=== PATIENT | female | born 1965 | race Caucasian/White ===

== ENCOUNTER 2023-01-15 13:01 | Outpatient (RCR) | payer OTHER, SELFPAY ==
--- NOTE | 2023-01-15 15:47 | PT.OPE ---
[facility] PT [facility] Start: 01/15/23 13:04 Freq: Status: Active Protocol: Document 01/15/23 15:46 CJT (Rec: 01/15/23 15:47 CJT [id number]) E-signed By Rogerio Carney PT Physical Therapy Outpatient Evaluation Insurance Information Recert Due Date 04/15/23 Insurance Name [employer] R42 - Vertigo Treating Diagnosis H81.12 - L ear BPPV Referring Lianet Roche MD Subjective Subjective Pt attended about 6 weeks ago with complaints of sinus infection, headaches, etc. Pt is having periodic bouts of dizziness when she tips her head back while showering, using eye drops. Bending over to pick weeds, tie her shoes causes her dizziness to increase. Pt rolls out of her bed to her left. Pt also has 20+ year history of headaches. She has had imaging in the past that has returned negative for abnormalities or other concerns. Pt does note that she has very tight scalenes as well as upper traps. Current Work Status Retired Precautions Therapy Limitations/Systems Review Not Limited Objective Other/Pertinent Objective Oculomotor Testing Gaze Stabilization: negative Smooth Pursuits: negative Saccades: negative Convergence: negative Head Shake: negative Head Thrust: negative Positional Testing -R Terri-Hallpike: negative -L Terri-Hallpike: postiive for dizziness and torsional nystagmus lasting approx 10 seconds -R Roll: DNT -L Roll: DNT Assessment Assessment/Impression Soco is a very pleasant 57 year old female who presents to our clinic for evaluation of dizziness. Differential diagnosis is broad, including though was not limited to: peripheral processes (BPPV, vestibular neuritis, labyrinthitis, Meniere?s disease), NUTRITIONAL CHEMIST process (CVA, TIA, vascular dissection), cardiac arrhythmia, ACS, hypertensive urgency, among others. Based on the above history and exam, her symptoms are most suspicious and consistent with a peripheral process, with highest suspicion for BPPV. Each of her episodes of dizziness are distinctly triggered by changes in body position/head movement, and dizziness fatigues/resolves after a few seconds. She does have a positive Terri-Hallpike maneuver towards the Left side . Upon viewing this, an Clarisse maneuver was appropriately performed and pt noted complete resolution in her symptoms following. Other etiologies for dizziness were considered, but felt to be less likely at this time. Soco may have a component of cerivcogenic dizziness that we will further evaluate when she returns to our clinic. The nature of the pts condition was explained and all questions were answered to the pts satisfaction. Skilled PT services are medically necessary to address deficits and return patient to highest level of function. Recommend physical therapy sessions 1/ week for 4 weeks. Pt agrees with this plan. Printout of HEP was given for I completion and pt gives verbal understanding of each exercise . Plan of Care Rehabilitation Potential Good Physical Therapy Goals STG - To be completed in 2-3 weeks: 1. Pt will report reduction in dizziness frequency and intensity so that they may return to normal bed mobility with minimal bouts of dizziness. LTG - To be completed in 4 weeks: 1. Pt will report ability to roll over in bed to either side without onset of dizziness so that they may roll over in bed without waking. 2. Pt will score 120/120 on mCTSIB as indication of improved vestibular component of balance to reduce risk of falls. 3. Pt will report absence of dizziness with all positional testing so that they may perform all activities with similar head/neck positions including rolling over in bed, washing hair in shower without onset of dizziness. Treatment Plan/Direct Interventions Canalith Repositioning,Heat, Joint Mobilization,Manual Therapy,Neuromuscular Re-ed, Therapeutic Exercises Frequency/Duration 1/week for 4 weeks Patient Will Be Discharged From Therapy Completion of LTG(s),Skills Plateau,Independent w/HEP, Independently Progressing Evaluation Billing Untimed Code Treatment Minutes 60 PT Eval No Charge No Complexity Low Certification Information Initial Certification Date 01/15/23 Ending Certification Date 04/15/23 Provider Signature Shows Agreement With POC & Medical Necessity Physician Signature & Date Requested Please Sign/Date Here Physician Comment/Change : Physician NPI Number #
== END 2023-03-21 09:30 | disposition home or self-care (01) ==
PROVIDERS: PCP Emergency Medicine; Visit Provider Emergency Medicine
DX: H81.12 Benign paroxysmal vertigo, left ear (principal); Z51.89 Encounter for other specified aftercare
CPT/HCPCS: 97161

== ENCOUNTER 2023-07-23 10:08 | Outpatient (CLI) | payer BC, SELFPAY | END 2023-07-23 10:09 | disposition home or self-care (01) | LOC: LKVREF 10:11 | PROVIDERS: PCP Emergency Medicine; Visit Provider Family Medicine | DX: Z01.818 Encounter for other preprocedural examination (principal); Z13.6 Encounter for screening for cardiovascular disorders | CPT/HCPCS: 80061 ==

== ENCOUNTER 2024-06-10 09:08 | Outpatient (CLI) | payer BC, SELFPAY | END 2024-06-10 09:09 | disposition home or self-care (01) | PROVIDERS: PCP Emergency Medicine; Visit Provider Emergency Medicine | DX: E16.2 Hypoglycemia, unspecified (principal); E21.3 Hyperparathyroidism, unspecified; R10.9 Unspecified abdominal pain | CPT/HCPCS: 80053; 82306; 83690; 83970; 87086 ==

== ENCOUNTER 2024-06-11 13:13 | Outpatient (CLI) | payer BC, SELFPAY | END 2024-06-11 13:14 | disposition home or self-care (01) | LOC: NFLDREF 06-12 11:42 | PROVIDERS: PCP Emergency Medicine; Referring Provider Emergency Medicine; Visit Provider Emergency Medicine | DX: R10.13 Epigastric pain (principal) | CPT/HCPCS: 87338 ==

== ENCOUNTER 2025-06-03 08:17 | Outpatient (CLI) | payer OTHER, SELFPAY | END 2025-06-03 08:18 | disposition home or self-care (01) | LOC: LKVREF 15:58 | PROVIDERS: PCP Physician Assistant Medical; Referring Provider Physician Assistant Medical; Visit Provider Physician Assistant Medical | DX: E21.3 Hyperparathyroidism, unspecified (principal); Z00.00 Encounter for general adult medical examination without abnormal findings | CPT/HCPCS: 80053; 80061; 82306; 83970; 84443; 86703; 86803 ==

== ENCOUNTER 2025-06-10 13:42 | Outpatient (CLI) | payer OTHER, SELFPAY ==
[2025-06-10 23:06] LABS: Chlamydia DNA Amplified* NOT DETECTED (No Detected); GC DNA Amplified* NOT DETECTED (No Detected)
== END 2025-06-10 13:43 | disposition home or self-care (01) ==
PROVIDERS: PCP Physician Assistant Medical; Visit Provider Physician Assistant Medical
DX: Z00.00 Encounter for general adult medical examination without abnormal findings (principal); K12.0 Recurrent oral aphthae; G44.229 Chronic tension-type headache, not intractable; K21.9 Gastro-esophageal reflux disease without esophagitis
CPT/HCPCS: 82306; 82607; 82746; 82784; 84425; 86231; 86258; 86364; 87491; 87591; 87624; 87625; 88141; 88142; 88175